=== PATIENT | male | born 1945 | race Caucasian/White ===

== ENCOUNTER 2017-11-04 10:43 | Emergency (ER) | payer MEDICARE, OTHER ==
[~2017-11-04] VITALS: Ht 185.4 cm; Wt 102.1 kg
[~2017-11-04 10:43] MED LIST: ASPIRIN81 M1 PO; CORDARONE200 MG PO; LIPITOR10 MG PO; MECLIZINE HCL25 MG PO; SERTRALINE HCL100 MG PO; SYNTHROID100 MCG PO; TENORMIN25 MG PO; ZESTRIL20 MG PO
[2017-11-04] MEDS ORDERED: COQ-10100 M1 PO (11:10)
[2017-11-04] MEDS ORDERED: LEVOTHYROXINE125 MCG ORAL (11:10)
[2017-11-04] MEDS ORDERED: LISINOPRIL10 MG ORAL (11:10)
[2017-11-04] MEDS ORDERED: AMLODIPINE BES2.5 MG ORAL (11:10)
[2017-11-04] MEDS ORDERED: LIPITOR80 MG ORAL (11:10)
[2017-11-04] MEDS ORDERED: XANAX0.25 MG ORAL (11:10)
[2017-11-04] MEDS ORDERED: VENLAFAXINE HC225 MG ORAL (11:10)
[2017-11-04 11:49] VITALS: BP 158/74
[2017-11-04 11:55] VITALS: BP 148/78
[2017-11-04] MEDS ORDERED: NAPROXEN375 M2 ORAL (11:56)
--- NOTE | 2017-11-04 13:12 | Diagnostic Imaging Report ---
Indication: Pain 3 views of the left knee were obtained. Findings: Mild narrowing of the medial compartment and patellofemoral compartments demonstrated. Pointing of the tibial spines noted. No malalignment or fracture seen. No definite joint effusion identified. IMPRESSION: No acute injury identified. Mild arthrosis.
--- NOTE | 2017-11-05 07:01 | Emergency Room Report ---
History of Present Illness General Chief Complaint: Pain Source: Patient Present Illness HPI Patient is a 72-year-old male who presented after increased knee pain. The patient reported having increased pain to his left knee. The pain was located along the medial aspect. The patient reported having some sharp pain. He stated that he may have injured this taking down [employer] lights. He denied any fever or sore throat. He denies prior history of gout. He denied any locking of his knee or numbness distally. 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, ARRYTHMIA Hx Hypertension: Yes Review of Systems All Other Systems: negative except mentioned in HPI Physical Exam Vital Signs Date Time Temp Pulse Resp B/P (MAP) Pulse Ox O2 Delivery O2 Flow Rate FiO2 11/04/17 10:53 97.9 88 16 165/77 98 Room Air Sp02 EP Interpretation: reviewed, normal General Appearance: normal inspection, well appearing, no apparent distress, alert, GCS 15 Head: atraumatic ENT: normal ENT inspection, hearing grossly normal, normal voice Neck: normal inspection, full range of motion, supple, no bony tend Respiratory: normal inspection, lungs clear, normal breath sounds, no respiratory distress, no retraction, no wheezing Cardiovascular #1: regular rate, rhythm, no edema Gastrointestinal: normal inspection, normal bowel sounds, non tender, soft, no guarding, no hernia Genitourinary: no CVA tenderness Musculoskeletal: normal inspection, back normal, normal range of motion, other - good rom, slight laxity medial stress, and anterior drawer slight laxity, brisk distal pulses Neurologic: normal inspection, alert, oriented x3, responsive, flexible nanny III-XII nml as tested, speech normal Psychiatric: normal inspection, judgement/insight normal, mood/affect normal Skin: normal inspection, normal color, no rash Medical Decision Making Diagnostic Impression: Primary Impression: Arthritis of knee, right Additional Impression: Knee MCL sprain ER Course Patient presented for knee pain. Differential diagnosis included was not limited to popliteal aneurysm, arthritis, dislocation, ligamentous injury, septic joint among others.Because of complexity of patient's case imaging studies were ordered. X-ray imaging of the left knee 3 views interpreted by me showed normal bony alignment without evident fracture degenerative changes are noted. The patient is advised to follow up with primary care doctor in 1-2 days for orthopedic referral. Patient is advised to return if any worsening condition or if any changes in status that are concerning. This report is dictated with [employer] local announcer software which may occasionally lead to discrepancies related to use of this software. Last Vital Signs Date Time Temp Pulse Resp B/P (MAP) Pulse Ox O2 Delivery O2 Flow Rate FiO2 11/04/17 11:55 98.0 76 20 148/78 99 Room Air Status: improved Disposition: HOME, SELF-CARE Condition: Stable Scripts Naproxen* (NAPROXEN*) 375 Mg Tablet. 375 MG ORAL TWICE A DAY, #14 TAB Prov: Yury Cotto 11/04/17 Patient Instructions: KNEE PAIN, Uncertain Cause Yury Cotto Nov 05, 2017 07:01
== END 2017-11-04 11:57 | disposition home or self-care (01) ==
LOC: EMR 11:25
DX: S83.419A Sprain of medial collateral ligament of unspecified knee, initial encounter (principal); M17.11 Unilateral primary osteoarthritis, right knee; X58.XXXA Exposure to other specified factors, initial encounter; Y92.9 Unspecified place or not applicable; Z88.0 Allergy status to penicillin; I10 Essential (primary) hypertension; I25.2 Old myocardial infarction
CPT/HCPCS: 99283